=== PATIENT | male | born 1990 | race African-American/Black ===

== ENCOUNTER 2016-11-11 01:07 | Emergency (ER) | payer MEDICAID ==
[~2016-11-11] VITALS: Ht 185.4 cm; Wt 80.4 kg
[2016-11-11 01:18] VITALS: BP 141/91
== END 2016-11-11 01:58 | disposition home or self-care (01) ==
LOC: ED 01:07
DX: K12.0 Recurrent oral aphthae (principal); Z79.1 Long term (current) use of non-steroidal anti-inflammatories (NSAID)